=== PATIENT | male | born 1970 | race Caucasian/White ===

== ENCOUNTER 2016-09-27 16:57 | Emergency (ER) | payer OTHER ==
[2016-09-27] MEDS ORDERED: diphenhydrAMINE 25 MG CAP As Ordered ONE (18:15)
[2016-09-27] MEDS ORDERED: ASPIRIN 81 MG CHEW TABLET As Ordered ONE (18:15)
[2016-09-27 18:27] LABS: ANION GAP 8 MEQ/L (8-16); BLOOD UREA NITROGEN 15 MG/DL (7-18); CALCIUM LEVEL 9.2 MG/DL (8.5-10.1); CARBON DIOXIDE LEVEL 31 MEQ/L (21-32); CHLORIDE LEVEL 103 MEQ/L (98-107); CREATININE FOR GFR 0.95 MG/DL (0.70-1.30); GLOMERULAR FILTRATION RATE > 60.0 (>60); GLUCOSE, FASTING 98 MG/DL (70-105); POTASSIUM SERUM 3.5 MEQ/L (3.5-5.1); SODIUM LEVEL 142 MEQ/L (136-145)
[2016-09-27 18:33] LABS: MEAN CORPUSCULAR HEMOGLOBIN 32.8 pg (27.0-33.0); MEAN CORPUSCULAR HGB CONC 35.4 g/dl (32.0-36.5); MEAN CORPUSCULAR VOLUME 92.6 fl (80.0-96.0); RED CELL DISTRIBUTION WIDTH 11.9 % (11.5-14.5)
[2016-09-27] MEDS ORDERED: ISOVUE-370 76% 100ML VIAL (Q9967) As Ordered ONE (19:05)
--- NOTE | 2016-09-27 19:18 | REP ---
Clinical: Chest pain. Technique: Portable semiupright. Comparison: 08/30/2012. Findings: Chronic stable interstitial changes are appreciated. Coarsened markings may reflect reactive airway disease versus bronchitis. No focal consolidation, effusion, or pneumothorax. Mediastinum and cardiac silhouette normal. Skeletal structures intact. Impression: Chronic stable changes. Cannot exclude acute bronchitis without focal consolidation. Signed by Mal Hendricks MD 09/27/2016 07:09 P
--- NOTE | 2016-09-27 19:38 | REP ---
Clinical: Acute chest pain. Technique: Axial contrast enhanced images from the thoracic inlet to the upper abdomen using 100 ml Isovue 370 intravenous contrast material with coronal and sagittal re-formations. Findings: Satisfactory enhancement of the pulmonary vasculature is achieved and no filling defects are identified to suggest pulmonary embolus. Thoracic aorta is normal caliber without aneurysm or dissection. Heart and pericardium are normal. Bilateral lung bateman are well aerated and clear without acute pulmonary parenchymal consolidation or atelectasis. No nodule or mass lesion. No pleural effusion/reaction. No pneumothorax. No adenopathy. Impression: No evidence for pulmonary embolus. No acute pleuroparenchymal or mediastinal process. Signed by Mal Hendricks MD 09/27/2016 07:30 P
--- NOTE | 2016-09-28 01:11 | EDDOCDS ---
Nurse's Notes [facility] Name: Surjit Richardson Age: 46 yrs Sex: Male : 1970 Arrival Date: 09/27/2016 Time: 16:57 Bed OBSERVATION Private MD: Toya Pcp Diagnosis: Chest pain, unspecified Presentation: 09/27 17:01 Presenting complaint: Patient states: intermittent chest pain since May. Reports ead "I bent over to tie my shoes yesterday and pain suddenly became worse." Reports pain radiates into upper back. Denies sob/dizziness. Aspirin was not taken prior to arrival. Adult Sepsis Screening: The patient does not have new or worsening altered mentation. Patient's respiratory rate is less than 22. Systolic blood pressure is greater than 100. Patient has a qSOFA score of 0- Negative Sepsis Screen. Suicide/Homicide risk assessment- the patient denies having any suicidal and/or homicidal ideations and does not present with any other emotional, behavioral or mental health complaints. 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 Transition of care: patient was not received from another setting of care. 17:01 Acuity: KRISTEN Level 3 ead 17:01 Method Of Arrival: Walkin/Carried/Asstd ead Triage Assessment: 17:03 General: Appears in no apparent distress, comfortable, Behavior is cooperative. Pain: ead Location: chest Pain currently is 5 out of 10 on a pain scale. HIV screening NA for this visit Offered previously. Neurological: Level of Consciousness is awake, alert, obeys commands, Oriented to person, place, time. Cardiovascular: Chest pain is described as Pain is 5 out of 10 on a pain scale. radiates back episodes are intermittent began yesterday. Respiratory: Denies shortness of breath. Derm: Skin is pink, warm & dry. Historical: - Allergies: Aleve (Hives); - Home Meds: 1. none - PMHx: none; - PSHx: Appendectomy; double hernia; Carpal Tunnel Repair- Right; - Social history: Smoking status: Patient states former smoker of tobacco. No barriers to communication noted, The patient speaks fluent Latvian, Speaks appropriately for age. - Family history: Not pertinent. - : The pt / caregiver states he / she is not on anticoagulants. Home medication list is obtained from the patient. - Exposure Risk Screening:: None identified. Screenin:14 Screening information is obtained from the patient. Fall risk: No risks identified. kc3 Assistance ADL's: requires no assistance with activities of daily living. Abuse/DV Screen: The patient / caregiver reports he/she is: not in a situation that causes fear, pain or injury. Nutritional screening: No deficits noted. Advance Directives: Currently, there is no health care proxy. home support is adequate. Assessment: 17:12 General: Appears in no apparent distress, comfortable, Behavior is appropriate for age, kc3 cooperative. Pain: Location: chest. Neurological: Level of Consciousness is awake, alert, obeys commands, Oriented to person, place, time. Cardiovascular: Rhythm is sinus rhythm Chest pain is described as Pain is 4 out of 10 on a pain scale. quality is heaviness, is located in right anterior chest wall radiates back episodes are intermittent began yesterday pm. Respiratory: Respiratory effort is even, unlabored, Respiratory pattern is regular, symmetrical. GI: Denies nausea. Derm: Skin is pink, warm & dry. Musculoskeletal: Circulation, motion, and sensation intact. 18:18 General: Appears in no apparent distress, comfortable, Behavior is appropriate for age, kc3 cooperative. Neurological: No deficits noted. Cardiovascular: Rhythm is sinus rhythm Chest pain is described as Pain is 1 out of 10 on a pain scale. Respiratory: Respiratory effort is even, unlabored, Respiratory pattern is regular, symmetrical. Derm: Skin is pink, warm & dry. 18:59 General: Verbal report given by Ema Pat RN.. kas2 19:00 General: Assumed care of patient at this time.. kas2 19:05 General: Patient gone to CT scan via stretcher with tech.. kas2 19:21 General: Patient back from CT scan via stretcher with RN. Resettled in bed. Denies pain kas2 or discomfort at this time. No apparent distress noted. Call lazaro within reach. Will continue to monitor.. 20:08 General: Appears in no apparent distress, comfortable, well nourished, well groomed, kas2 Behavior is appropriate for age, cooperative. Pain: Denies pain. Neurological: Level of Consciousness is awake, alert, obeys commands, Oriented to person, place, time. Cardiovascular: Capillary refill < 3 seconds Heart tones S1 S2 present Rhythm is sinus rhythm No ectopy. Respiratory: Airway is patent Respiratory effort is even, unlabored, Respiratory pattern is regular, symmetrical, Breath sounds are clear bilaterally. GI: Abdomen is flat, non- distended Bowel sounds present X 4 quads. Abd is soft and non tender X 4 quads. Derm: Skin is intact, is healthy with good turgor, Skin is dry, Skin is pink, warm & dry. Skin temperature is warm. 20:59 General: Patient laying in bed. Denies pain or discomfort at this time. Appears kas2 comfortable. No apparent distress noted. Call lazaro within reach. Will continue to monitor.. 22:55 General: Appears in no apparent distress, comfortable, well nourished, well groomed, kas2 Behavior is appropriate for age, cooperative. Pain: Denies pain. Neurological: Level of Consciousness is awake, alert, obeys commands, Oriented to person, place, time. Cardiovascular: Capillary refill < 3 seconds Heart tones present Rhythm is sinus rhythm No ectopy. Respiratory: Airway is patent Respiratory effort is even, unlabored, Respiratory pattern is regular, symmetrical, Breath sounds are clear bilaterally. Derm: Skin is intact, is healthy with good turgor, Skin is dry, Skin is pink, warm & dry. Skin temperature is warm. 09/28 00:13 General: Patient sleeping at this time. Appears comfortable. No apparent distress kas2 noted. Call lazaro within reach. Will continue to monitor.. 01:08 General: Appears in no apparent distress, Behavior is appropriate for age, cooperative, sls1 Discharge instructions reviewed with pt including medication use, referral for cardiology, and [facility] clinic to establish care, pt verbalizes understanding of all instructions. Pain: Denies pain. Neurological: No deficits noted. Cardiovascular: Rhythm is sinus rhythm No ectopy. Chest pain is denied. Respiratory: Airway is patent Respiratory effort is even, unlabored, Respiratory pattern is regular, symmetrical. Vital Signs: 09/27 17:00 BP 157 / 74; Pulse 78; Resp 18 S; Temp 96.8(O); Pulse Ox 100% on R/A; Weight 83.91 kg gr2 (R); Height 5 ft. 7 in. (170.18 cm) (R); Pain 4/10; 17:16 BP 141 / 85 (auto/); kc3 17:17 Pulse 63 MON; Pulse Ox 99% ; kc3 17:30 BP 123 / 76 (auto/); kc3 17:31 Pulse 60 MON; Pulse Ox 99% ; kc3 18:00 BP 125 / 78 (auto/); kc3 18:01 Pulse 65 MON; Pulse Ox 98% ; kc3 18:30 BP 123 / 76 (auto/); kas2 18:30 Pulse 64 MON; Pulse Ox 98% ; kas2 19:00 BP 129 / 75 (auto/); kas2 19:00 Pulse 63 MON; Pulse Ox 97% ; kas2 19:19 BP 139 / 80 (auto/); kas2 19:21 Pulse 59 MON; Pulse Ox 98% ; kas2 19:30 BP 127 / 75 (auto/); kas2 19:30 Pulse 59 MON; Pulse Ox 98% ; kas2 19:45 BP 126 / 74 (auto/); kas2 19:45 Pulse 60 MON; Pulse Ox 98% ; kas2 20:00 BP 127 / 77 (auto/); kas2 20:00 Pulse 67 MON; Pulse Ox 98% ; kas2 20:10 Resp 18; Temp 98.0(O); kas2 20:15 BP 124 / 76 (auto/); kas2 20:15 Pulse 61 MON; Pulse Ox 98% ; kas2 20:30 BP 121 / 73 (auto/); kas2 20:30 Pulse 66 MON; Pulse Ox 96% ; kas2 20:45 BP 122 / 72 (auto/); kas2 20:45 Pulse 65 MON; Pulse Ox 98% ; kas2 21:00 BP 122 / 72 (auto/); kas2 21:00 Pulse 66 MON; Pulse Ox 97% ; kas2 21:15 BP 115 / 69 (auto/); kas2 21:15 Pulse 67 MON; Pulse Ox 97% ; kas2 21:30 BP 119 / 71 (auto/); kas2 21:30 Pulse 68 MON; Pulse Ox 98% ; kas2 21:45 BP 124 / 75 (auto/); kas2 21:45 Pulse 65 MON; Pulse Ox 98% ; kas2 22:00 BP 130 / 77 (auto/); kas2 22:00 Pulse 66 MON; Pulse Ox 97% ; kas2 22:15 BP 129 / 79 (auto/); kas2 22:15 Pulse 63 MON; Pulse Ox 99% ; kas2 22:30 BP 129 / 78 (auto/); kas2 22:30 Pulse 68 MON; Pulse Ox 98% ; kas2 23:00 BP 128 / 77 (auto/); kas2 23:00 Pulse 64 MON; Pulse Ox 98% ; kas2 23:15 BP 130 / 82 (auto/); kas2 23:15 Pulse 65 MON; Pulse Ox 98% ; kas2 23:30 BP 133 / 79 (auto/); kas2 23:30 Pulse 62 MON; Pulse Ox 98% ; kas2 23:45 BP 133 / 80 (auto/); kas2 23:45 Pulse 63 MON; Pulse Ox 98% ; kas2 01 00:09 BP 135 / 77 (auto/); kas2 00:09 Pulse 65 MON; Pulse Ox 98% ; kas2 00:15 BP 132 / 78 (auto/); sls1 00:16 Pulse 64 MON; Pulse Ox 97% ; sls1 00:30 BP 133 / 78 (auto/); sls1 00:31 Pulse 66 MON; Pulse Ox 97% ; sls1 00:45 BP 137 / 80 (auto/); sls1 00:47 Pulse 69 MON; Resp 22; Pulse Ox 97% on R/A; Pain 0/10; sls1 09/27 17:00 Body Mass Index 28.97 (83.91 kg, 170.18 cm) gr2 Vitals: 09/27 17:00 Log In Time: September 27, 2016 at 17:00. gr2 17:01 RN notified that patient meets Red Flag criteria. gr2 ED Course: 16:59 Patient visited by Niki Medrano. gr2 16:59 No Pcp is Private Physician. gr2 16:59 Patient moved to Waiting gr2 17:01 Patient visited by Niki Medrano. gr2 17:01 Patient visited by Niki Medrano. gr2 17:02 Patient moved to Pre RCE gr2 17:02 Triage Initiated ead 17:08 Ema Pat,RN is Primary Nurse. kcs 17:08 Patient moved to 3 kcs 17:13 burglar alarm installer on. Pulse ox on. ead 17:15 The patient / caregiver is instructed regarding the plan of care and ED course. kc3 17:16 EKG done. (by ED staff). Reviewed by Cody Otoole DO. cln 17:23 Inserted saline lock: 18 gauge in right antecubital area and blood collected. The kc3 patient tolerated the procedure well. 17:24 Patient visited by Ema Pat RN. kc3 17:28 Cody Otoole DO is Attending Physician. cs11 17:28 Patient visited by Cody Otoole DO. cs11 18:08 Patient visited by Ema Pat RN. kc3 18:08 Cardiac Marker Panel Sent. kc3 18:08 Pt & Aptt Sent. kc3 18:08 MED Profile Sent. kc3 18:08 CBC Sent. kc3 18:19 Patient visited by Ema Pat RN. kc3 18:56 Shayla Honeycutt RN is Primary Nurse. kas2 18:59 Patient visited by Shayla Honeycutt RN. kas2 19:23 Patient visited by Shayla Honeycutt RN. kas2 19:27 Chest, 1 View Returned. EDMS 20:00 Patient visited by Shayla Honeycutt RN. kas2 20:03 CT Chest Angio R/O PE Returned. EDMS 20:28 Primary Nurse role handed off by Ema Pat RN ar3 21:01 Patient visited by Shayla Honeycutt RN. kas2 21:11 [facility] Payment Agreement was scanned into [facility] and attached to record. zo 21:23 Patient moved to OBSERVATION cs11 22:57 Patient visited by Shayla Honeycutt RN. kas2 23:57 Attending Physician role handed off by Cody Otoole DO mm11 23:57 Joel Munoz DO is Attending Physician. mm11 09/28 00:02 CARDIAC MARKER PANEL Sent. jmv 00:11 EKG done. (by ED staff). Reviewed by Joel Munoz DO. jmv 00:12 Patient visited by Thor Lucero PCA. jmv 00:15 Patient visited by Shayla Honeycutt RN. kas2 01:02 Jeff De Los Santos MD is Referral Physician. mm11 01:02 [facility] is Referral Physician. mm11 01:08 Discontinued lock intact, bleeding controlled, pressure dressing applied, No sls1 redness/swelling at site. No procedures done that require assistance. Administered Medications: 09/27 18:18 Drug: Aspirin 324 mg [aspirin 81 mg chewable tablet (4 tabs)] Route: PO; kc3 18:18 Drug: diphenhydrAMINE 25 mg [diphenhydramine 25 mg capsule (1 caps)] Route: PO; kc3 19:06 Drug: NS 0.9% 1000 ml [sodium chloride 0.9 % intravenous solution] Route: IV; Rate: kas2 bolus; Site: right antecubital; Order Results: Lab Order: CBC; [facility] 09/27/16 17:22 Test: WHITE BLOOD COUNT; Value: 6.0; Range: 4.0-10.0; Units: K/mm3; Status: F Test: RED BLOOD COUNT; Value: 4.44; Range: 4.30-6.10; Units: M/mm3; Status: F Test: HEMOGLOBIN; Value: 14.6; Range: 14.0-18.0; Units: g/dl; Status: F Test: HEMATOCRIT; Value: 41.1; Range: 42.0-52.0; Abnormal: Below low normal; Units: %; Status: F Test: MEAN CORPUSCULAR VOLUME; Value: 92.6; Range: 80.0-96.0; Units: fl; Status: F Test: MEAN CORPUSCULAR HEMOGLOBIN; Value: 32.8; Range: 27.0-33.0; Units: pg; Status: F Test: MEAN CORPUSCULAR HGB CONC; Value: 35.4; Range: 32.0-36.5; Units: g/dl; Status: F Test: RED CELL DISTRIBUTION WIDTH; Value: 11.9; Range: 11.5-14.5; Units: %; Status: F Test: PLATELET COUNT, AUTOMATED; Value: 321; Range: 150-450; Units: k/mm3; Status: F Lab Order: MED Profile; SPEC09/27/16 17:22 Test: GLUCOSE, FASTING; Value: 98; Range: 70-105; Units: MG/DL; Status: F Test: BLOOD UREA NITROGEN; Value: 15; Range: 7-18; Units: MG/DL; Status: F Test: CREATININE FOR GFR; Value: 0.95; Range: 0.70-1.30; Units: MG/DL; Status: F Test: GLOMERULAR FILTRATION RATE; Value: > 60.0; Range: >60; Status: F Test: SODIUM LEVEL; Value: 142; Range: 136-145; Units: MEQ/L; Status: F Test: POTASSIUM SERUM; Value: 3.5; Range: 3.5-5.1; Units: MEQ/L; Status: F Test: CHLORIDE LEVEL; Value: 103; Range: 98-107; Units: MEQ/L; Status: F Test: CARBON DIOXIDE LEVEL; Value: 31; Range: 21-32; Units: MEQ/L; Status: F Test: ANION GAP; Value: 8; Range: 8-16; Units: MEQ/L; Status: F Test: CALCIUM LEVEL; Value: 9.2; Range: 8.5-10.1; Units: MG/DL; Status: F Test Note: ; Units are mL/min/1.73 m2 Chronic Kidney Disease Staging per NKF: Stage I & II GFR >=60 Normal to Mildly Decreased Stage III GFR 30-59 Moderately Decreased Stage IV GFR 15-29 Severely Decreased Stage V GFR <15 Very Little GFR Left ESRD GFR <15 on PRACTICAL NURSING FACULTY Lab Order: Pt & Aptt; SPEC'M 09/27/16 17:22 Test: PROTHROMBIN TIME; Value: 13.3; Range: 12.3-14.5; Units: SECONDS; Status: F Test: INR; Value: 1.00; Status: F Test: PARTIAL THROMBOPLASTIN TIME; Value: 29.2; Range: 26.6-37.1; Units: SECONDS; Status: F Test Note: ; THERAPUTIC HUMAN INR VALUES INDICATIONS NORMAL RANGES PROPHYLAXIS/TREATMENT OF: VENOUS THROMBOSIS 2.0-3.0 PULMONARY EMBOLISM 2.0-3.0 PREVENTION OF SYSTEMIC EMBOLISM FROM: TISSUE HEART VALVES 2.0-3.0 ACUTE MYOCARDIAL INFARCTION 2.0-3.0 VALVULAR HEART DISEASE 2.0-3.0 ATRIAL FIBRILLATION 2.0-3.0 MECHANICAL VALVES(HIGH RISK) 2.5-3.5 RECURRENT MYOCARDIAL INFARCTION 2.5-3.5 Lab Order: Cardiac Marker Panel; SPEC'M 09/27/16 17:22 Test: CPK CREATINE PHOSPHOKINASE; Value: 98; Range: 39-308; Units: U/L; Status: F Test: CK-MB VALUE MASS; Value: 1.0; Range: 0.0-3.6; Units: NG/ML; Status: F Test: MB/CK RELATIVE INDEX; Value: 1.02; Range: < OR =4; Status: F Test: TROPONIN I; Value: < 0.02; Range: < 0.10; Units: NG/ML; Status: F Test Note: ; DIAGNOSIS CRITERIA MMB ng/ml Relative Index (RI) NON-AMI < or = 5 N/A DALAL ZONE > 5 < or = 4 AMI > 5 > 4 Lab Order: CARDIAC MARKER PANEL; SPEC'M 09/28/16 00:02 Test: CPK CREATINE PHOSPHOKINASE; Value: 83; Range: 39-308; Units: U/L; Status: F Test: CK-MB VALUE MASS; Value: 1.0; Range: 0.0-3.6; Units: NG/ML; Status: F Test: MB/CK RELATIVE INDEX; Value: 1.20; Range: < OR =4; Status: F Test: TROPONIN I; Value: < 0.02; Range: < 0.10; Units: NG/ML; Status: F Test Note: ; DIAGNOSIS CRITERIA MMB ng/ml Relative Index (RI) NON-AMI < or = 5 N/A DALAL ZONE > 5 < or = 4 AMI > 5 > 4 Radiology Order: Chest, 1 View Test: Chest, 1 View REASON FOR EXAMINATION: Chest Pain; Clinical: Chest pain.; ; Technique: Portable semiupright.; ; Comparison: 08/30/2012.; ; Findings: Chronic stable interstitial changes are appreciated. Coarsened; markings may reflect reactive airway disease versus bronchitis. No focal; consolidation, effusion, or pneumothorax. Mediastinum and cardiac silhouette; normal. Skeletal structures intact.; ; Impression:; Chronic stable changes.; Cannot exclude acute bronchitis without focal consolidation.; ; ; Signed by; Mal Hendricks MD 09/27/2016 07:09 P; Radiology Order: CT Chest Angio R/O PE Test: CT Chest Angio R/O PE REASON FOR EXAMINATION: Chest Pain; Clinical: Acute chest pain.; ; Technique: Axial contrast enhanced images from the thoracic inlet to the upper; abdomen using 100 ml Isovue 370 intravenous contrast material with coronal and; sagittal re-formations.; ; Findings: Satisfactory enhancement of the pulmonary vasculature is achieved and; no filling defects are identified to suggest pulmonary embolus. Thoracic aorta; is normal caliber without aneurysm or dissection. Heart and pericardium are; normal. Bilateral lung bateman are well aerated and clear without acute pulmonary; parenchymal consolidation or atelectasis. No nodule or mass lesion. No pleural; effusion/reaction. No pneumothorax. No adenopathy.; ; Impression:; No evidence for pulmonary embolus.; No acute pleuroparenchymal or mediastinal process.; ; ; Signed by; Mal Hendricks MD 09/27/2016 07:30 P; Outcome: 09/28 01:03 Discharge ordered by Provider. mm11 01:08 Discharge Assessment: Patient awake, alert and oriented x 3. No cognitive and/or sls1 functional deficits noted. Patient verbalized understanding of disposition instructions. patient administered narcotics - no. The following High Risk Discharge criteria are identified: None. Discharged to home ambulatory. Condition: stable. Discharge instructions given to patient, Instructed on discharge instructions, follow up and referral plans. medication usage, Demonstrated understanding of instructions, medications, Pt was receptive of discharge instructions/ teaching. Prescriptions given X 1. Property :Personal belongings accompany Pt. 01:10 CT Study completed. sls1 01:10 Patient left the ED. sls1 Signatures: Dispatcher [employer] EDMS Sugey Lopez, RN RN Mily Hi Matthew, DO DO mm11 Gill Dejesus, MOLDING ENGINEER MOLDING ENGINEER ar3 Tri Dotson, RN RN sls1 Cody Otoole, DO DO cs11 Niki Medrano gr2 Kylah Rodriguez,RN Ema Sepulveda RN RN kc3 Shayla Honeycutt RN RN kas2 Andrae, Erica, MOLDING ENGINEER MOLDING ENGINEER cln Thor Lucero, MOLDING ENGINEER MOLDING ENGINEER jmv MTDD
--- NOTE | 2016-09-28 01:11 | EDDOCDS ---
Physician Documentation [facility] Name: [facility] Clarkn[place]ki Age: 46 yrs Sex: Male : 1970 Arrival Date: 09/27/2016 Time: 16:57 Bed OBSERVATION Private MD: No Pcp Disposition: 09/28/16 01:03 Discharged to Home/Self Care. Impression: Chest pain, unspecified. - Condition is Stable. - Discharge Instructions: Angina Pectoris, Nonspecific Chest Pain, Chest Wall Pain. - Prescriptions for Prednisone 20 mg Oral Tablet - take 1 tablet by ORAL route once daily for 5 days; 5 tablet. - Medication Reconciliation, Local Pharmacy Hours form. - Follow up: Jeff De Los Santos MD; When: 10 - 14 days; Reason: To establish care. [facility]; When: Call to arrange an appointment; Reason: To establish care. - Problem is an acute exacerbation. - Symptoms have improved. Historical: - Allergies: Aleve (Hives); - Home Meds: 1. none - PMHx: none; - PSHx: Appendectomy; double hernia; Carpal Tunnel Repair- Right; - Social history: Smoking status: Patient states former smoker of tobacco. No barriers to communication noted, The patient speaks fluent Kiswahili, Speaks appropriately for age. - Family history: Not pertinent. - : The pt / caregiver states he / she is not on anticoagulants. Home medication list is obtained from the patient. - Exposure Risk Screening:: None identified. Vital Signs: 09/27 17:00 BP 157 / 74; Pulse 78; Resp 18 S; Temp 96.8(O); Pulse Ox 100% on R/A; Weight 83.91 kg / gr2 184.99 lbs (R); Height 5 ft. 7 in. (170.18 cm) (R); Pain 4/10; 17:16 BP 141 / 85 (auto/); kc3 17:17 Pulse 63 MON; Pulse Ox 99% ; kc3 17:30 BP 123 / 76 (auto/); kc3 17:31 Pulse 60 MON; Pulse Ox 99% ; kc3 18:00 BP 125 / 78 (auto/); kc3 18:01 Pulse 65 MON; Pulse Ox 98% ; kc3 18:30 BP 123 / 76 (auto/); kas2 18:30 Pulse 64 MON; Pulse Ox 98% ; kas2 19:00 BP 129 / 75 (auto/); kas2 19:00 Pulse 63 MON; Pulse Ox 97% ; kas2 19:19 BP 139 / 80 (auto/); kas2 19:21 Pulse 59 MON; Pulse Ox 98% ; kas2 19:30 BP 127 / 75 (auto/); kas2 19:30 Pulse 59 MON; Pulse Ox 98% ; kas2 19:45 BP 126 / 74 (auto/); kas2 19:45 Pulse 60 MON; Pulse Ox 98% ; kas2 20:00 BP 127 / 77 (auto/); kas2 20:00 Pulse 67 MON; Pulse Ox 98% ; kas2 20:10 Resp 18; Temp 98.0(O); kas2 20:15 BP 124 / 76 (auto/); kas2 20:15 Pulse 61 MON; Pulse Ox 98% ; kas2 20:30 BP 121 / 73 (auto/); kas2 20:30 Pulse 66 MON; Pulse Ox 96% ; kas2 20:45 BP 122 / 72 (auto/); kas2 20:45 Pulse 65 MON; Pulse Ox 98% ; kas2 21:00 BP 122 / 72 (auto/); kas2 21:00 Pulse 66 MON; Pulse Ox 97% ; kas2 21:15 BP 115 / 69 (auto/); kas2 21:15 Pulse 67 MON; Pulse Ox 97% ; kas2 21:30 BP 119 / 71 (auto/); kas2 21:30 Pulse 68 MON; Pulse Ox 98% ; kas2 21:45 BP 124 / 75 (auto/); kas2 21:45 Pulse 65 MON; Pulse Ox 98% ; kas2 22:00 BP 130 / 77 (auto/); kas2 22:00 Pulse 66 MON; Pulse Ox 97% ; kas2 22:15 BP 129 / 79 (auto/); kas2 22:15 Pulse 63 MON; Pulse Ox 99% ; kas2 22:30 BP 129 / 78 (auto/); kas2 22:30 Pulse 68 MON; Pulse Ox 98% ; kas2 23:00 BP 128 / 77 (auto/); kas2 23:00 Pulse 64 MON; Pulse Ox 98% ; kas2 23:15 BP 130 / 82 (auto/); kas2 23:15 Pulse 65 MON; Pulse Ox 98% ; kas2 23:30 BP 133 / 79 (auto/); kas2 23:30 Pulse 62 MON; Pulse Ox 98% ; kas2 23:45 BP 133 / 80 (auto/); kas2 23:45 Pulse 63 MON; Pulse Ox 98% ; kas2 09/28 00:09 BP 135 / 77 (auto/); kas2 00:09 Pulse 65 MON; Pulse Ox 98% ; kas2 00:15 BP 132 / 78 (auto/); sls1 00:16 Pulse 64 MON; Pulse Ox 97% ; sls1 00:30 BP 133 / 78 (auto/); sls1 00:31 Pulse 66 MON; Pulse Ox 97% ; sls1 00:45 BP 137 / 80 (auto/); sls1 00:47 Pulse 69 MON; Resp 22; Pulse Ox 97% on R/A; Pain 0/10; [facility] 09/27 17:00 Body Mass Index 28.97 (83.91 kg, 170.18 cm) gr2 MDM: 09/27 17:06 ECG WITH READING ER PHYS+CARDIAG ordered. EDMS 17:56 Aspirin 324 mg PO once ordered. cs11 17:56 diphenhydrAMINE 25 mg PO once ordered. cs11 17:56 IV Saline Lock ordered. cs11 17:57 Chest, 1 View Ordered. EDMS 17:57 CBC Ordered. EDMS 17:57 MED Profile Ordered. EDMS 17:57 Pt & Aptt Ordered. EDMS 17:57 Cardiac Marker Panel Ordered. EDMS 18:59 CBC Reviewed. cs11 18:59 MED Profile Reviewed. cs11 18:59 Pt & Aptt Reviewed. cs11 18:59 Cardiac Marker Panel Reviewed. cs11 18:59 NS 0.9% 1000 ml IV at bolus once ordered. cs11 19:01 CT Chest Angio R/O PE Ordered. EDMS 20:49 Financial registration complete. zo 21:11 [facility] Payment Agreement was scanned into [employer] and attached to record. zo 22:33 Misc Chief Crna Order ordered. cs11 22:46 [facility] Chief Crna Order complete. tmm1 22:46 ECG WITH READING ER PHYS ordered. EDMS 22:47 CARDIAC MARKER PANEL Ordered. EDMS 22:57 Chest, 1 View Reviewed. cs11 22:57 CT Chest Angio R/O PE Reviewed. cs11 09/28 00:45 CARDIAC MARKER PANEL Reviewed. mm11 Administered Medications: 09/27 18:18 Drug: Aspirin 324 mg [aspirin 81 mg chewable tablet (4 tabs)] Route: PO; kc3 18:18 Drug: diphenhydrAMINE 25 mg [diphenhydramine 25 mg capsule (1 caps)] Route: PO; kc3 19:06 Drug: NS 0.9% 1000 ml [sodium chloride 0.9 % intravenous solution] Route: IV; Rate: kas2 bolus; Site: right antecubital; Signatures: Dispatcher [employer] EDMily Etienne Matthew, DO DO mm11 Tri Dotson RN RN sls1 Cody Otoole DO DO cs11 McLear, Karla, ARTILLERY MAINTENANCE SUPERVISOR ARTILLERY MAINTENANCE SUPERVISOR tmm1 Kylah Rodriguez RN RN Ema Hernandez RN kc3 Shayla Honeycutt RN kas2 The chart was reviewed and I authenticate all verbal orders and agree with the evaluation and treatment provided.Attachments: 21:11 [facility] Payment Agreement zo MTDD
--- NOTE | 2016-09-28 19:51 | ECGEPIP ---
Stationary ECG Study [facility] - ED Test Date: 2016-09-27 Pat Name: [facility] Department: Room: - Gender: M Glaze Handler: elza : 1970 Requested By: LANE Juárez Order Number: [id number] Reading MD: Esperanza Gonzalez Measurements Intervals [place] Rate: 71 P: 47 NH: 189 QRS: 8 QRSD: 82 T: 31 QT: 377 QTc: 411 Interpretive Statements SINUS RHYTHM NSTTW ABNORMALITY NO PRIOR FOR COMPARISON Electronically Signed On 09-28-2016 19:51:29 EST by Esperanza Gonzalez
--- NOTE | 2016-09-28 19:53 | ECGEPIP ---
Stationary ECG Study [facility] - ED Test Date: 2016-09-28 Pat Name: CHUCK FOSTER Department: Room: - Gender: M Deportation Examiner: alexandre : 1970 Requested By: RAHEEM BOLANOS Order Number: [id number] Reading MD: Esperanza Gonzalez Measurements Intervals [place] Rate: 58 P: 39 DE: 189 QRS: 3 QRSD: 82 T: 16 QT: 380 QTc: 375 Interpretive Statements SINUS BRADYCARDIA NSTTW ABNORMALITY DECREASED RATE 09/27/16 Electronically Signed On 09-28-2016 19:53:03 EST by Esperanza Gonzalez
--- NOTE | 2016-09-30 02:11 | EDDOCDS ---
Physician Documentation [facility] Name: [facility] [place] Age: 46 yrs Sex: Male : 1970 Arrival Date: 09/27/2016 Time: 16:57 Bed OBSERVATION Private MD: No Pcp Disposition: 09/28/16 01:03 Discharged to Home/Self Care. Impression: Chest pain, unspecified. - Condition is Stable. - Discharge Instructions: Angina Pectoris, Nonspecific Chest Pain, Chest Wall Pain. - Prescriptions for Prednisone 20 mg Oral Tablet - take 1 tablet by ORAL route once daily for 5 days; 5 tablet. - Medication Reconciliation, Local Pharmacy Hours form. - Follow up: Jeff De Los Santos MD; When: 10 - 14 days; Reason: To establish care. [facility]; When: Call to arrange an appointment; Reason: To establish care. - Problem is an acute exacerbation. - Symptoms have improved. Historical: - Allergies: Aleve (Hives); - Home Meds: 1. none - PMHx: none; - PSHx: Appendectomy; double hernia; Carpal Tunnel Repair- Right; - Social history: Smoking status: Patient states former smoker of tobacco. No barriers to communication noted, The patient speaks fluent Urdu, Speaks appropriately for age. - Family history: Not pertinent. - : The pt / caregiver states he / she is not on anticoagulants. Home medication list is obtained from the patient. - Exposure Risk Screening:: None identified. Vital Signs: 09/27 17:00 BP 157 / 74; Pulse 78; Resp 18 S; Temp 96.8(O); Pulse Ox 100% on R/A; Weight 83.91 kg / gr2 184.99 lbs (R); Height 5 ft. 7 in. (170.18 cm) (R); Pain 4/10; 17:16 BP 141 / 85 (auto/); kc3 17:17 Pulse 63 MON; Pulse Ox 99% ; kc3 17:30 BP 123 / 76 (auto/); kc3 17:31 Pulse 60 MON; Pulse Ox 99% ; kc3 18:00 BP 125 / 78 (auto/); kc3 18:01 Pulse 65 MON; Pulse Ox 98% ; kc3 18:30 BP 123 / 76 (auto/); kas2 18:30 Pulse 64 MON; Pulse Ox 98% ; kas2 19:00 BP 129 / 75 (auto/); kas2 19:00 Pulse 63 MON; Pulse Ox 97% ; kas2 19:19 BP 139 / 80 (auto/); kas2 19:21 Pulse 59 MON; Pulse Ox 98% ; kas2 19:30 BP 127 / 75 (auto/); kas2 19:30 Pulse 59 MON; Pulse Ox 98% ; kas2 19:45 BP 126 / 74 (auto/); kas2 19:45 Pulse 60 MON; Pulse Ox 98% ; kas2 20:00 BP 127 / 77 (auto/); kas2 20:00 Pulse 67 MON; Pulse Ox 98% ; kas2 20:10 Resp 18; Temp 98.0(O); kas2 20:15 BP 124 / 76 (auto/); kas2 20:15 Pulse 61 MON; Pulse Ox 98% ; kas2 20:30 BP 121 / 73 (auto/); kas2 20:30 Pulse 66 MON; Pulse Ox 96% ; kas2 20:45 BP 122 / 72 (auto/); kas2 20:45 Pulse 65 MON; Pulse Ox 98% ; kas2 21:00 BP 122 / 72 (auto/); kas2 21:00 Pulse 66 MON; Pulse Ox 97% ; kas2 21:15 BP 115 / 69 (auto/); kas2 21:15 Pulse 67 MON; Pulse Ox 97% ; kas2 21:30 BP 119 / 71 (auto/); kas2 21:30 Pulse 68 MON; Pulse Ox 98% ; kas2 21:45 BP 124 / 75 (auto/); kas2 21:45 Pulse 65 MON; Pulse Ox 98% ; kas2 22:00 BP 130 / 77 (auto/); kas2 22:00 Pulse 66 MON; Pulse Ox 97% ; kas2 22:15 BP 129 / 79 (auto/); kas2 22:15 Pulse 63 MON; Pulse Ox 99% ; kas2 22:30 BP 129 / 78 (auto/); kas2 22:30 Pulse 68 MON; Pulse Ox 98% ; kas2 23:00 BP 128 / 77 (auto/); kas2 23:00 Pulse 64 MON; Pulse Ox 98% ; kas2 23:15 BP 130 / 82 (auto/); kas2 23:15 Pulse 65 MON; Pulse Ox 98% ; kas2 23:30 BP 133 / 79 (auto/); kas2 23:30 Pulse 62 MON; Pulse Ox 98% ; kas2 23:45 BP 133 / 80 (auto/); kas2 23:45 Pulse 63 MON; Pulse Ox 98% ; kas2 09/28 00:09 BP 135 / 77 (auto/); kas2 00:09 Pulse 65 MON; Pulse Ox 98% ; kas2 00:15 BP 132 / 78 (auto/); sls1 00:16 Pulse 64 MON; Pulse Ox 97% ; sls1 00:30 BP 133 / 78 (auto/); sls1 00:31 Pulse 66 MON; Pulse Ox 97% ; sls1 00:45 BP 137 / 80 (auto/); sls1 00:47 Pulse 69 MON; Resp 22; Pulse Ox 97% on R/A; Pain 0/10; [facility] 09/27 17:00 Body Mass Index 28.97 (83.91 kg, 170.18 cm) gr2 MDM: 09/27 17:06 ECG WITH READING ER PHYS+CARDIAG ordered. EDMS 17:56 Aspirin 324 mg PO once ordered. cs11 17:56 diphenhydrAMINE 25 mg PO once ordered. cs11 17:56 IV Saline Lock ordered. cs11 17:57 Chest, 1 View Ordered. EDMS 17:57 CBC Ordered. EDMS 17:57 MED Profile Ordered. EDMS 17:57 Pt & Aptt Ordered. EDMS 17:57 Cardiac Marker Panel Ordered. EDMS 18:59 CBC Reviewed. cs11 18:59 MED Profile Reviewed. cs11 18:59 Pt & Aptt Reviewed. cs11 18:59 Cardiac Marker Panel Reviewed. cs11 18:59 NS 0.9% 1000 ml IV at bolus once ordered. cs11 19:01 CT Chest Angio R/O PE Ordered. EDMS 20:49 Financial registration complete. zo 21:11 [facility] Payment Agreement was scanned into [employer] and attached to record. zo 22:33 Misc Sanding Machine Operator Order ordered. cs11 22:46 [facility] Sanding Machine Operator Order complete. tmm1 22:46 ECG WITH READING ER PHYS ordered. EDMS 22:47 CARDIAC MARKER PANEL Ordered. EDMS 22:57 Chest, 1 View Reviewed. cs11 22:57 CT Chest Angio R/O PE Reviewed. cs11 09/28 00:45 CARDIAC MARKER PANEL Reviewed. mm11 03:28 T-Sheet-- Draft Copy was scanned into [employer] and attached to record. hs2 11:58 ECG/EKG was scanned into [employer] and attached to record. gb Administered Medications: 09/27 18:18 Drug: Aspirin 324 mg [aspirin 81 mg chewable tablet (4 tabs)] Route: PO; kc3 18:18 Drug: diphenhydrAMINE 25 mg [diphenhydramine 25 mg capsule (1 caps)] Route: PO; kc3 19:06 Drug: NS 0.9% 1000 ml [sodium chloride 0.9 % intravenous solution] Route: IV; Rate: kas2 bolus; Site: right antecubital; Signatures: Dispatcher [employer] EDMS Slime Schumacher, Reg Reg gb Mily Galloway Matthew, DO DO mm11 Tri Dotson RN RN sls1 Cody Otoole, DO DO cs11 McLear, Karla, BAR ROLLER BAR ROLLER tmm1 Kylah RodriguezRN RN eaAmrita Castillo, Reg Reg hs2 Ema Pat RN kc3 Shayla Honeycutt RN kas2 The chart was reviewed and I authenticate all verbal orders and agree with the evaluation and treatment provided.Attachments: 21:11 [facility] Payment Agreement zo 09/28 03:28 T-Sheet-- Draft Copy hs2 11:58 ECG/EKG gb Chart Complete MTDD
--- NOTE | 2016-09-30 02:11 | EDDOCDS ---
Nurse's Notes [facility] Name: Surjit Richardson Age: 46 yrs Sex: Male : 1970 Arrival Date: 09/27/2016 Time: 16:57 Bed OBSERVATION Private MD: Toya Pcp Diagnosis: Chest pain, unspecified Presentation: 09/27 17:01 Presenting complaint: Patient states: intermittent chest pain since May. Reports ead "I bent over to tie my shoes yesterday and pain suddenly became worse." Reports pain radiates into upper back. Denies sob/dizziness. Aspirin was not taken prior to arrival. Adult Sepsis Screening: The patient does not have new or worsening altered mentation. Patient's respiratory rate is less than 22. Systolic blood pressure is greater than 100. Patient has a qSOFA score of 0- Negative Sepsis Screen. Suicide/Homicide risk assessment- the patient denies having any suicidal and/or homicidal ideations and does not present with any other emotional, behavioral or mental health complaints. Status: Patient is not a room service attendant or dependent. Transition of care: patient was not received from another setting of care. 17:01 Acuity: KRISTEN Level 3 ead 17:01 Method Of Arrival: Walkin/Carried/Asstd ead Triage Assessment: 17:03 General: Appears in no apparent distress, comfortable, Behavior is cooperative. Pain: ead Location: chest Pain currently is 5 out of 10 on a pain scale. HIV screening NA for this visit Offered previously. Neurological: Level of Consciousness is awake, alert, obeys commands, Oriented to person, place, time. Cardiovascular: Chest pain is described as Pain is 5 out of 10 on a pain scale. radiates back episodes are intermittent began yesterday. Respiratory: Denies shortness of breath. Derm: Skin is pink, warm & dry. Historical: - Allergies: Aleve (Hives); - Home Meds: 1. none - PMHx: none; - PSHx: Appendectomy; double hernia; Carpal Tunnel Repair- Right; - Social history: Smoking status: Patient states former smoker of tobacco. No barriers to communication noted, The patient speaks fluent Amharic, Speaks appropriately for age. - Family history: Not pertinent. - : The pt / caregiver states he / she is not on anticoagulants. Home medication list is obtained from the patient. - Exposure Risk Screening:: None identified. Screenin:14 Screening information is obtained from the patient. Fall risk: No risks identified. kc3 Assistance ADL's: requires no assistance with activities of daily living. Abuse/DV Screen: The patient / caregiver reports he/she is: not in a situation that causes fear, pain or injury. Nutritional screening: No deficits noted. Advance Directives: Currently, there is no health care proxy. home support is adequate. Assessment: 17:12 General: Appears in no apparent distress, comfortable, Behavior is appropriate for age, kc3 cooperative. Pain: Location: chest. Neurological: Level of Consciousness is awake, alert, obeys commands, Oriented to person, place, time. Cardiovascular: Rhythm is sinus rhythm Chest pain is described as Pain is 4 out of 10 on a pain scale. quality is heaviness, is located in right anterior chest wall radiates back episodes are intermittent began yesterday pm. Respiratory: Respiratory effort is even, unlabored, Respiratory pattern is regular, symmetrical. GI: Denies nausea. Derm: Skin is pink, warm & dry. Musculoskeletal: Circulation, motion, and sensation intact. 18:18 General: Appears in no apparent distress, comfortable, Behavior is appropriate for age, kc3 cooperative. Neurological: No deficits noted. Cardiovascular: Rhythm is sinus rhythm Chest pain is described as Pain is 1 out of 10 on a pain scale. Respiratory: Respiratory effort is even, unlabored, Respiratory pattern is regular, symmetrical. Derm: Skin is pink, warm & dry. 18:59 General: Verbal report given by Ema Pat RN.. kas2 19:00 General: Assumed care of patient at this time.. kas2 19:05 General: Patient gone to CT scan via stretcher with tech.. kas2 19:21 General: Patient back from CT scan via stretcher with RN. Resettled in bed. Denies pain kas2 or discomfort at this time. No apparent distress noted. Call lazaro within reach. Will continue to monitor.. 20:08 General: Appears in no apparent distress, comfortable, well nourished, well groomed, kas2 Behavior is appropriate for age, cooperative. Pain: Denies pain. Neurological: Level of Consciousness is awake, alert, obeys commands, Oriented to person, place, time. Cardiovascular: Capillary refill < 3 seconds Heart tones S1 S2 present Rhythm is sinus rhythm No ectopy. Respiratory: Airway is patent Respiratory effort is even, unlabored, Respiratory pattern is regular, symmetrical, Breath sounds are clear bilaterally. GI: Abdomen is flat, non- distended Bowel sounds present X 4 quads. Abd is soft and non tender X 4 quads. Derm: Skin is intact, is healthy with good turgor, Skin is dry, Skin is pink, warm & dry. Skin temperature is warm. 20:59 General: Patient laying in bed. Denies pain or discomfort at this time. Appears kas2 comfortable. No apparent distress noted. Call lazaro within reach. Will continue to monitor.. 22:55 General: Appears in no apparent distress, comfortable, well nourished, well groomed, kas2 Behavior is appropriate for age, cooperative. Pain: Denies pain. Neurological: Level of Consciousness is awake, alert, obeys commands, Oriented to person, place, time. Cardiovascular: Capillary refill < 3 seconds Heart tones present Rhythm is sinus rhythm No ectopy. Respiratory: Airway is patent Respiratory effort is even, unlabored, Respiratory pattern is regular, symmetrical, Breath sounds are clear bilaterally. Derm: Skin is intact, is healthy with good turgor, Skin is dry, Skin is pink, warm & dry. Skin temperature is warm. 09/28 00:13 General: Patient sleeping at this time. Appears comfortable. No apparent distress kas2 noted. Call lazaro within reach. Will continue to monitor.. 01:08 General: Appears in no apparent distress, Behavior is appropriate for age, cooperative, sls1 Discharge instructions reviewed with pt including medication use, referral for cardiology, and [facility] clinic to establish care, pt verbalizes understanding of all instructions. Pain: Denies pain. Neurological: No deficits noted. Cardiovascular: Rhythm is sinus rhythm No ectopy. Chest pain is denied. Respiratory: Airway is patent Respiratory effort is even, unlabored, Respiratory pattern is regular, symmetrical. Vital Signs: 09/27 17:00 BP 157 / 74; Pulse 78; Resp 18 S; Temp 96.8(O); Pulse Ox 100% on R/A; Weight 83.91 kg gr2 (R); Height 5 ft. 7 in. (170.18 cm) (R); Pain 4/10; 17:16 BP 141 / 85 (auto/); kc3 17:17 Pulse 63 MON; Pulse Ox 99% ; kc3 17:30 BP 123 / 76 (auto/); kc3 17:31 Pulse 60 MON; Pulse Ox 99% ; kc3 18:00 BP 125 / 78 (auto/); kc3 18:01 Pulse 65 MON; Pulse Ox 98% ; kc3 18:30 BP 123 / 76 (auto/); kas2 18:30 Pulse 64 MON; Pulse Ox 98% ; kas2 19:00 BP 129 / 75 (auto/); kas2 19:00 Pulse 63 MON; Pulse Ox 97% ; kas2 19:19 BP 139 / 80 (auto/); kas2 19:21 Pulse 59 MON; Pulse Ox 98% ; kas2 19:30 BP 127 / 75 (auto/); kas2 19:30 Pulse 59 MON; Pulse Ox 98% ; kas2 19:45 BP 126 / 74 (auto/); kas2 19:45 Pulse 60 MON; Pulse Ox 98% ; kas2 20:00 BP 127 / 77 (auto/); kas2 20:00 Pulse 67 MON; Pulse Ox 98% ; kas2 20:10 Resp 18; Temp 98.0(O); kas2 20:15 BP 124 / 76 (auto/); kas2 20:15 Pulse 61 MON; Pulse Ox 98% ; kas2 20:30 BP 121 / 73 (auto/); kas2 20:30 Pulse 66 MON; Pulse Ox 96% ; kas2 20:45 BP 122 / 72 (auto/); kas2 20:45 Pulse 65 MON; Pulse Ox 98% ; kas2 21:00 BP 122 / 72 (auto/); kas2 21:00 Pulse 66 MON; Pulse Ox 97% ; kas2 21:15 BP 115 / 69 (auto/); kas2 21:15 Pulse 67 MON; Pulse Ox 97% ; kas2 21:30 BP 119 / 71 (auto/); kas2 21:30 Pulse 68 MON; Pulse Ox 98% ; kas2 21:45 BP 124 / 75 (auto/); kas2 21:45 Pulse 65 MON; Pulse Ox 98% ; kas2 22:00 BP 130 / 77 (auto/); kas2 22:00 Pulse 66 MON; Pulse Ox 97% ; kas2 22:15 BP 129 / 79 (auto/); kas2 22:15 Pulse 63 MON; Pulse Ox 99% ; kas2 22:30 BP 129 / 78 (auto/); kas2 22:30 Pulse 68 MON; Pulse Ox 98% ; kas2 23:00 BP 128 / 77 (auto/); kas2 23:00 Pulse 64 MON; Pulse Ox 98% ; kas2 23:15 BP 130 / 82 (auto/); kas2 23:15 Pulse 65 MON; Pulse Ox 98% ; kas2 23:30 BP 133 / 79 (auto/); kas2 23:30 Pulse 62 MON; Pulse Ox 98% ; kas2 23:45 BP 133 / 80 (auto/); kas2 23:45 Pulse 63 MON; Pulse Ox 98% ; kas2 01 00:09 BP 135 / 77 (auto/); kas2 00:09 Pulse 65 MON; Pulse Ox 98% ; kas2 00:15 BP 132 / 78 (auto/); sls1 00:16 Pulse 64 MON; Pulse Ox 97% ; sls1 00:30 BP 133 / 78 (auto/); sls1 00:31 Pulse 66 MON; Pulse Ox 97% ; sls1 00:45 BP 137 / 80 (auto/); sls1 00:47 Pulse 69 MON; Resp 22; Pulse Ox 97% on R/A; Pain 0/10; sls1 09/27 17:00 Body Mass Index 28.97 (83.91 kg, 170.18 cm) gr2 Vitals: 09/27 17:00 Log In Time: September 27, 2016 at 17:00. gr2 17:01 RN notified that patient meets Red Flag criteria. gr2 ED Course: 16:59 Patient visited by Niki Medrano. gr2 16:59 No Pcp is Private Physician. gr2 16:59 Patient moved to Waiting gr2 17:01 Patient visited by Niki Medrano. gr2 17:01 Patient visited by Niki Medrano. gr2 17:02 Patient moved to Pre RCE gr2 17:02 Triage Initiated ead 17:08 Ema Pat,RN is Primary Nurse. kcs 17:08 Patient moved to 3 kcs 17:13 lead front end developer on. Pulse ox on. ead 17:15 The patient / caregiver is instructed regarding the plan of care and ED course. kc3 17:16 EKG done. (by ED staff). Reviewed by Raheem Bolanos DO. cln 17:23 Inserted saline lock: 18 gauge in right antecubital area and blood collected. The kc3 patient tolerated the procedure well. 17:24 Patient visited by Ema Pat RN. kc3 17:28 Raheem Bolanos DO is Attending Physician. cs11 17:28 Patient visited by Raheem Bolanos DO. cs11 18:08 Patient visited by Ema Pat RN. kc3 18:08 Cardiac Marker Panel Sent. kc3 18:08 Pt & Aptt Sent. kc3 18:08 MED Profile Sent. kc3 18:08 CBC Sent. kc3 18:19 Patient visited by Ema Pat RN. kc3 18:56 Shayla Honeycutt RN is Primary Nurse. kas2 18:59 Patient visited by Shayla Honeycutt RN. kas2 19:23 Patient visited by Shayla Honeycutt RN. kas2 19:27 Chest, 1 View Returned. EDMS 20:00 Patient visited by Shayla Honeycutt RN. kas2 20:03 CT Chest Angio R/O PE Returned. EDMS 20:28 Primary Nurse role handed off by Ema Pat RN ar3 21:01 Patient visited by Shayla Honeycutt RN. kas2 21:11 [facility] Payment Agreement was scanned into NSC and attached to record. zo 21:23 Patient moved to OBSERVATION cs11 22:57 Patient visited by Shayla Honeycutt RN. kas2 23:57 Attending Physician role handed off by Raheem Bolanos DO mm11 23:57 Joel Munoz DO is Attending Physician. mm11 09/28 00:02 CARDIAC MARKER PANEL Sent. jmv 00:11 EKG done. (by ED staff). Reviewed by Joel Munoz DO. jmv 00:12 Patient visited by Thor Lucero PCA. jmv 00:15 Patient visited by Shayla Honeycutt RN. kas2 01:02 Jeff De Los Santos MD is Referral Physician. mm11 01:02 [facility] is Referral Physician. mm11 01:08 Discontinued lock intact, bleeding controlled, pressure dressing applied, No sls1 redness/swelling at site. No procedures done that require assistance. 03:28 T-Sheet-- Draft Copy was scanned into NSC and attached to record. hs2 11:58 ECG/EKG was scanned into NSC and attached to record. gb 20:25 EKG-ADULT Returned. EDMS 20:25 ECG WITH READING ER PHYS Returned. EDMS Administered Medications: 09/27 18:18 Drug: Aspirin 324 mg [aspirin 81 mg chewable tablet (4 tabs)] Route: PO; kc3 18:18 Drug: diphenhydrAMINE 25 mg [diphenhydramine 25 mg capsule (1 caps)] Route: PO; kc3 19:06 Drug: NS 0.9% 1000 ml [sodium chloride 0.9 % intravenous solution] Route: IV; Rate: kas2 bolus; Site: right antecubital; Order Results: Lab Order: CBC; SPEC'M 09/27/16 17:22 Test: WHITE BLOOD COUNT; Value: 6.0; Range: 4.0-10.0; Units: K/mm3; Status: F Test: RED BLOOD COUNT; Value: 4.44; Range: 4.30-6.10; Units: M/mm3; Status: F Test: HEMOGLOBIN; Value: 14.6; Range: 14.0-18.0; Units: g/dl; Status: F Test: HEMATOCRIT; Value: 41.1; Range: 42.0-52.0; Abnormal: Below low normal; Units: %; Status: F Test: MEAN CORPUSCULAR VOLUME; Value: 92.6; Range: 80.0-96.0; Units: fl; Status: F Test: MEAN CORPUSCULAR HEMOGLOBIN; Value: 32.8; Range: 27.0-33.0; Units: pg; Status: F Test: MEAN CORPUSCULAR HGB CONC; Value: 35.4; Range: 32.0-36.5; Units: g/dl; Status: F Test: RED CELL DISTRIBUTION WIDTH; Value: 11.9; Range: 11.5-14.5; Units: %; Status: F Test: PLATELET COUNT, AUTOMATED; Value: 321; Range: 150-450; Units: k/mm3; Status: F Lab Order: MED Profile; SPEC'M 09/27/16 17:22 Test: GLUCOSE, FASTING; Value: 98; Range: 70-105; Units: MG/DL; Status: F Test: BLOOD UREA NITROGEN; Value: 15; Range: 7-18; Units: MG/DL; Status: F Test: CREATININE FOR GFR; Value: 0.95; Range: 0.70-1.30; Units: MG/DL; Status: F Test: GLOMERULAR FILTRATION RATE; Value: > 60.0; Range: >60; Status: F Test: SODIUM LEVEL; Value: 142; Range: 136-145; Units: MEQ/L; Status: F Test: POTASSIUM SERUM; Value: 3.5; Range: 3.5-5.1; Units: MEQ/L; Status: F Test: CHLORIDE LEVEL; Value: 103; Range: 98-107; Units: MEQ/L; Status: F Test: CARBON DIOXIDE LEVEL; Value: 31; Range: 21-32; Units: MEQ/L; Status: F Test: ANION GAP; Value: 8; Range: 8-16; Units: MEQ/L; Status: F Test: CALCIUM LEVEL; Value: 9.2; Range: 8.5-10.1; Units: MG/DL; Status: F Test Note: ; Units are mL/min/1.73 m2 Chronic Kidney Disease Staging per NKF: Stage I & II GFR >=60 Normal to Mildly Decreased Stage III GFR 30-59 Moderately Decreased Stage IV GFR 15-29 Severely Decreased Stage V GFR <15 Very Little GFR Left ESRD GFR <15 on CERTIFIED MASSAGE THERAPIST Lab Order: Pt & Aptt; SPEC'M 09/27/16 17:22 Test: PROTHROMBIN TIME; Value: 13.3; Range: 12.3-14.5; Units: SECONDS; Status: F Test: INR; Value: 1.00; Status: F Test: PARTIAL THROMBOPLASTIN TIME; Value: 29.2; Range: 26.6-37.1; Units: SECONDS; Status: F Test Note: ; THERAPUTIC HUMAN INR VALUES INDICATIONS NORMAL RANGES PROPHYLAXIS/TREATMENT OF: VENOUS THROMBOSIS 2.0-3.0 PULMONARY EMBOLISM 2.0-3.0 PREVENTION OF SYSTEMIC EMBOLISM FROM: TISSUE HEART VALVES 2.0-3.0 ACUTE MYOCARDIAL INFARCTION 2.0-3.0 VALVULAR HEART DISEASE 2.0-3.0 ATRIAL FIBRILLATION 2.0-3.0 MECHANICAL VALVES(HIGH RISK) 2.5-3.5 RECURRENT MYOCARDIAL INFARCTION 2.5-3.5 Lab Order: Cardiac Marker Panel; SPEC'M 09/27/16 17:22 Test: CPK CREATINE PHOSPHOKINASE; Value: 98; Range: 39-308; Units: U/L; Status: F Test: CK-MB VALUE MASS; Value: 1.0; Range: 0.0-3.6; Units: NG/ML; Status: F Test: MB/CK RELATIVE INDEX; Value: 1.02; Range: < OR =4; Status: F Test: TROPONIN I; Value: < 0.02; Range: < 0.10; Units: NG/ML; Status: F Test Note: ; DIAGNOSIS CRITERIA MMB ng/ml Relative Index (RI) NON-AMI < or = 5 N/A DALAL ZONE > 5 < or = 4 AMI > 5 > 4 Lab Order: [facility]ARDIAC [facility] PANEL; [facility]02 Test: CPK CREATINE PHOSPHOKINASE; Value: 83; Range: 39-308; Units: U/L; Status: F Test: CK-MB VALUE MASS; Value: 1.0; Range: 0.0-3.6; Units: NG/ML; Status: F Test: MB/CK RELATIVE INDEX; Value: 1.20; Range: < OR =4; Status: F Test: TROPONIN I; Value: < 0.02; Range: < 0.10; Units: NG/ML; Status: F Test Note: ; DIAGNOSIS CRITERIA MMB ng/ml Relative Index (RI) NON-AMI < or = 5 N/A DALAL ZONE > 5 < or = 4 AMI > 5 > 4 Radiology Order: EKG-ADULT Test: EKG-ADULT REASON FOR EXAMINATION: Chest Pain; Stationary ECG Study; [facility] - ED; ; Test Date: 2016-09-27; Pat Name: [facility] Department:; Room: -; Gender: M Hyperion Analyst: elza; : 1970 Requested By: LANE Juárez; Order Number: [id number] Reading MD: Esperanza Gonzalez; Measurements; Intervals [place]; Rate: 71 P: 47; IN: 189 QRS: 8; QRSD: 82 T: 31; QT: 377; QTc: 411; Interpretive Statements; SINUS RHYTHM; NSTTW ABNORMALITY; NO PRIOR FOR COMPARISON; Electronically Signed On 09-28-2016 19:51:29 EST by Esperanza Staples-Dwyer; Radiology Order: Chest, 1 View Test: Chest, 1 View REASON FOR EXAMINATION: Chest Pain; Clinical: Chest pain.; ; Technique: Portable semiupright.; ; Comparison: 08/30/2012.; ; Findings: Chronic stable interstitial changes are appreciated. Coarsened; markings may reflect reactive airway disease versus bronchitis. No focal; consolidation, effusion, or pneumothorax. Mediastinum and cardiac silhouette; normal. Skeletal structures intact.; ; Impression:; Chronic stable changes.; Cannot exclude acute bronchitis without focal consolidation.; ; ; Signed by; Mal Hendricks MD 09/27/2016 07:09 P; Radiology Order: CT Chest Angio R/O PE Test: CT Chest Angio R/O PE REASON FOR EXAMINATION: Chest Pain; Clinical: Acute chest pain.; ; Technique: Axial contrast enhanced images from the thoracic inlet to the upper; abdomen using 100 ml Isovue 370 intravenous contrast material with coronal and; sagittal re-formations.; ; Findings: Satisfactory enhancement of the pulmonary vasculature is achieved and; no filling defects are identified to suggest pulmonary embolus. Thoracic aorta; is normal caliber without aneurysm or dissection. Heart and pericardium are; normal. Bilateral lung bateman are well aerated and clear without acute pulmonary; parenchymal consolidation or atelectasis. No nodule or mass lesion. No pleural; effusion/reaction. No pneumothorax. No adenopathy.; ; Impression:; No evidence for pulmonary embolus.; No acute pleuroparenchymal or mediastinal process.; ; ; Signed by; Mal Hendricks MD 09/27/2016 07:30 P; Radiology Order: ECG WITH READING ER PHYS Test: ECG WITH READING ER PHYS REASON FOR EXAMINATION: CHEST PAIN; Stationary ECG Study; [facility] - ED; ; Test Date: 2016-09-28; Pat Name: [facility] Department:; Room: -; Gender: M Hyperion Analyst: alexandre; : 1970 Requested By: RAHEEM BOLANOS; Order Number: [id number] Reading MD: Esperanza Gonzalez; Measurements; Intervals [place]; Rate: 58 P: 39; IN: 189 QRS: 3; QRSD: 82 T: 16; QT: 380; QTc: 375; Interpretive Statements; SINUS BRADYCARDIA; NSTTW ABNORMALITY; DECREASED RATE 09/27/16; Electronically Signed On 09-28-2016 19:53:03 EST by Esperanza Gonzalez; Outcome: 09/28 01:03 Discharge ordered by Provider. mm11 01:08 Discharge Assessment: Patient awake, alert and oriented x 3. No cognitive and/or sls1 functional deficits noted. Patient verbalized understanding of disposition instructions. patient administered narcotics - no. The following High Risk Discharge criteria are identified: None. Discharged to home ambulatory. Condition: stable. Discharge instructions given to patient, Instructed on discharge instructions, follow up and referral plans. medication usage, Demonstrated understanding of instructions, medications, Pt was receptive of discharge instructions/ teaching. Prescriptions given X 1. Property :Personal belongings accompany Pt. 01:10 CT Study completed. sls1 01:10 Patient left the ED. sls1 Signatures: Dispatcher [employer] EDMS Sugey Lopez, RN RN kcs Slime Schumacher, Reg Reg gb Nilesh, Joel Bueno, DO DO mm11 Gill Dejesus, NEWCOMER HOSTESS NEWCOMER HOSTESS ar3 Tri Dotson, RN RN sls1 Raheem Bolanos, DO DO cs11 Niki Medrano gr2 Kylah Rodriguez,RN RN Ema Hernandez,RN RN kc3 Amrita Roberson, Reg Reg hs2 Shayla Honeycutt,RN RN aaron2 Eirca Abebe, NEWCOMER HOSTESS NEWCOMER HOSTESS cln Thor Lucero, NEWCOMER HOSTESS NEWCOMER HOSTESS jmv Chart Complete MTDD
--- NOTE | 2016-09-30 02:11 | EDDOCDS ---
Physician Documentation [facility] Name: [facility] Age: 46 yrs Sex: Male : 1970 Arrival Date: 09/27/2016 Time: 16:57 Bed OBSERVATION Private MD: No Pcp Disposition: 09/28/16 01:03 Discharged to Home/Self Care. Impression: Chest pain, unspecified. - Condition is Stable. - Discharge Instructions: Angina Pectoris, Nonspecific Chest Pain, Chest Wall Pain. - Prescriptions for Prednisone 20 mg Oral Tablet - take 1 tablet by ORAL route once daily for 5 days; 5 tablet. - Medication Reconciliation, Local Pharmacy Hours form. - Follow up: Jeff De Los Santos MD; When: 10 - 14 days; Reason: To establish care. [facility]; When: Call to arrange an appointment; Reason: To establish care. - Problem is an acute exacerbation. - Symptoms have improved. Historical: - Allergies: Aleve (Hives); - Home Meds: 1. none - PMHx: none; - PSHx: Appendectomy; double hernia; Carpal Tunnel Repair- Right; - Social history: Smoking status: Patient states former smoker of tobacco. No barriers to communication noted, The patient speaks fluent Tajik, Speaks appropriately for age. - Family history: Not pertinent. - : The pt / caregiver states he / she is not on anticoagulants. Home medication list is obtained from the patient. - Exposure Risk Screening:: None identified. Vital Signs: 09/27 17:00 BP 157 / 74; Pulse 78; Resp 18 S; Temp 96.8(O); Pulse Ox 100% on R/A; Weight 83.91 kg / gr2 184.99 lbs (R); Height 5 ft. 7 in. (170.18 cm) (R); Pain 4/10; 17:16 BP 141 / 85 (auto/); kc3 17:17 Pulse 63 MON; Pulse Ox 99% ; kc3 17:30 BP 123 / 76 (auto/); kc3 17:31 Pulse 60 MON; Pulse Ox 99% ; kc3 18:00 BP 125 / 78 (auto/); kc3 18:01 Pulse 65 MON; Pulse Ox 98% ; kc3 18:30 BP 123 / 76 (auto/); kas2 18:30 Pulse 64 MON; Pulse Ox 98% ; kas2 19:00 BP 129 / 75 (auto/); kas2 19:00 Pulse 63 MON; Pulse Ox 97% ; kas2 19:19 BP 139 / 80 (auto/); kas2 19:21 Pulse 59 MON; Pulse Ox 98% ; kas2 19:30 BP 127 / 75 (auto/); kas2 19:30 Pulse 59 MON; Pulse Ox 98% ; kas2 19:45 BP 126 / 74 (auto/); kas2 19:45 Pulse 60 MON; Pulse Ox 98% ; kas2 20:00 BP 127 / 77 (auto/); kas2 20:00 Pulse 67 MON; Pulse Ox 98% ; kas2 20:10 Resp 18; Temp 98.0(O); kas2 20:15 BP 124 / 76 (auto/); kas2 20:15 Pulse 61 MON; Pulse Ox 98% ; kas2 20:30 BP 121 / 73 (auto/); kas2 20:30 Pulse 66 MON; Pulse Ox 96% ; kas2 20:45 BP 122 / 72 (auto/); kas2 20:45 Pulse 65 MON; Pulse Ox 98% ; kas2 21:00 BP 122 / 72 (auto/); kas2 21:00 Pulse 66 MON; Pulse Ox 97% ; kas2 21:15 BP 115 / 69 (auto/); kas2 21:15 Pulse 67 MON; Pulse Ox 97% ; kas2 21:30 BP 119 / 71 (auto/); kas2 21:30 Pulse 68 MON; Pulse Ox 98% ; kas2 21:45 BP 124 / 75 (auto/); kas2 21:45 Pulse 65 MON; Pulse Ox 98% ; kas2 22:00 BP 130 / 77 (auto/); kas2 22:00 Pulse 66 MON; Pulse Ox 97% ; kas2 22:15 BP 129 / 79 (auto/); kas2 22:15 Pulse 63 MON; Pulse Ox 99% ; kas2 22:30 BP 129 / 78 (auto/); kas2 22:30 Pulse 68 MON; Pulse Ox 98% ; kas2 23:00 BP 128 / 77 (auto/); kas2 23:00 Pulse 64 MON; Pulse Ox 98% ; kas2 23:15 BP 130 / 82 (auto/); kas2 23:15 Pulse 65 MON; Pulse Ox 98% ; kas2 23:30 BP 133 / 79 (auto/); kas2 23:30 Pulse 62 MON; Pulse Ox 98% ; kas2 23:45 BP 133 / 80 (auto/); kas2 23:45 Pulse 63 MON; Pulse Ox 98% ; kas2 09/28 00:09 BP 135 / 77 (auto/); kas2 00:09 Pulse 65 MON; Pulse Ox 98% ; kas2 00:15 BP 132 / 78 (auto/); sls1 00:16 Pulse 64 MON; Pulse Ox 97% ; sls1 00:30 BP 133 / 78 (auto/); sls1 00:31 Pulse 66 MON; Pulse Ox 97% ; sls1 00:45 BP 137 / 80 (auto/); sls1 00:47 Pulse 69 MON; Resp 22; Pulse Ox 97% on R/A; Pain 0/10; [facility] 09/27 17:00 Body Mass Index 28.97 (83.91 kg, 170.18 cm) gr2 MDM: 09/27 17:06 ECG WITH READING ER PHYS+CARDIAG ordered. EDMS 17:56 Aspirin 324 mg PO once ordered. cs11 17:56 diphenhydrAMINE 25 mg PO once ordered. cs11 17:56 IV Saline Lock ordered. cs11 17:57 Chest, 1 View Ordered. EDMS 17:57 CBC Ordered. EDMS 17:57 MED Profile Ordered. EDMS 17:57 Pt & Aptt Ordered. EDMS 17:57 Cardiac Marker Panel Ordered. EDMS 18:59 CBC Reviewed. cs11 18:59 MED Profile Reviewed. cs11 18:59 Pt & Aptt Reviewed. cs11 18:59 Cardiac Marker Panel Reviewed. cs11 18:59 NS 0.9% 1000 ml IV at bolus once ordered. cs11 19:01 CT Chest Angio R/O PE Ordered. EDMS 20:49 Financial registration complete. zo 21:11 [facility] [place] Agreement was scanned into [employer] and attached to record. zo 22:33 Misc Machine Trimmer Order ordered. cs11 22:46 [facility] Order complete. tmm1 22:46 ECG WITH READING ER PHYS ordered. EDMS 22:47 CARDIAC MARKER PANEL Ordered. EDMS 22:57 Chest, 1 View Reviewed. cs11 22:57 CT Chest Angio R/O PE Reviewed. cs11 09/28 00:45 CARDIAC MARKER PANEL Reviewed. mm11 03:28 T-Sheet-- Draft Copy was scanned into [employer] and attached to record. hs2 11:58 ECG/EKG was scanned into [employer] and attached to record. gb Administered Medications: 09/27 18:18 Drug: Aspirin 324 mg [aspirin 81 mg chewable tablet (4 tabs)] Route: PO; kc3 18:18 Drug: diphenhydrAMINE 25 mg [diphenhydramine 25 mg capsule (1 caps)] Route: PO; kc3 19:06 Drug: NS 0.9% 1000 ml [sodium chloride 0.9 % intravenous solution] Route: IV; Rate: kas2 bolus; Site: right antecubital; Signatures: Dispatcher [employer] EDMS Slime Schumacher, Reg Reg gb Mily Galloway Matthew, DO DO mm11 Tri Dotson RN RN sls1 Cody Otoole, DO DO cs11 McLear, Karla, TIMBER FELLER TIMBER FELLER tmm1 Kylah RodriguezRN RN eaAmrita Castillo, Reg Reg hs2 Ema Pat RN kc3 Shayla Honeycutt RN kas2 The chart was reviewed and I authenticate all verbal orders and agree with the evaluation and treatment provided.Attachments: 21:11 [facility] [place] Payment Agreement zo 09/28 03:28 T-Sheet-- Draft Copy hs2 11:58 ECG/EKG gb Chart Complete MTDD
== END 2016-09-28 01:10 | disposition home or self-care (01) ==
LOC: M ED 16:57
DX: R07.89 Other chest pain (principal); Z90.89 Acquired absence of other organs; Z87.891 Personal history of nicotine dependence; Z88.6 Allergy status to analgesic agent
CPT/HCPCS: 36415; 71010; 71275; 80048; 82550; 82553; 85027; 85610; 85730; 93005; 99285; Q9967

== ENCOUNTER → 2017-01-03 | Outpatient (REF) | payer OTHER ==
[2017-01-03 12:31] LABS: FREE T4 0.77 NG/DL (0.76-1.46)
== END ==
LOC: M SFHCPLAZ 10:28
PROVIDERS: ATTEND Family Medicine
DX: R45.0 Nervousness (principal)

== ENCOUNTER → 2017-04-07 | Outpatient (CLI) | payer OTHER ==
--- NOTE | 2017-04-07 12:28 | REP ---
RIGHT HIP, TWO VIEWS: HISTORY: Osteoarthritis. There is no acute fracture or dislocation. The joint space is normal in appearance. IMPRESSION: There is no acute fracture or dislocation. Signed by Dereje Mack MD 04/07/2017 12:39 P
== END ==
LOC: M RAD 11:58
PROVIDERS: ATTEND Family Medicine
DX: M16.11 Unilateral primary osteoarthritis, right hip (principal)

== ENCOUNTER → 2018-02-01 | Outpatient (CLI) | payer OTHER ==
[2018-02-01 19:38] LABS: BASO % 0.7 % (0.0-1.0); EOS # 0.2 10^3/uL (0.0-0.50); EOS % 3.8 % (0.0-3.0); HEMATOCRIT 42.4 % (42.0-52.0); HEMOGLOBIN 14.6 g/dl (13.5-17.5); IMMATURE GRANULOCYTE % 0.4 % (0-3.0); LYMPH # 2.6 10^3/uL (1.5-4.5); LYMPH % 47.8 % (24.0-44.0); MEAN CORPUSCULAR HGB CONC 34.4 g/dl (32.0-36.5); MONO # 0.5 10^3/uL (0.0-0.8); MONO % 8.3 % (0.0-5.0); NEUTROPHILS # 2.2 10^3/uL (1.8-7.7); PLATELET COUNT, AUTOMATED 318 10^3/uL (150-450); RED BLOOD COUNT 4.56 10^6/uL (4.30-6.10); WHITE BLOOD COUNT 5.5 10^3/uL (4.0-10.0)
[2018-02-01 19:57] LABS: ALKALINE PHOSPHATASE 92 U/L (45-117); ALT/SGPT 51 U/L (12-78); ANION GAP 4 MEQ/L (8-16); AST/SGOT 32 U/L (7-37); BLOOD UREA NITROGEN 11 MG/DL (7-18); CARBON DIOXIDE LEVEL 31 MEQ/L (21-32); CHLORIDE LEVEL 104 MEQ/L (98-107); CREATININE FOR GFR 0.97 MG/DL (0.70-1.30); GLOMERULAR FILTRATION RATE > 60.0 (>60); GLUCOSE, FASTING 80 MG/DL (70-100); SODIUM LEVEL 139 MEQ/L (136-145)
[2018-02-01 19:58] LABS: ALBUMIN 4.2 GM/DL (3.2-5.2); ALBUMIN/GLOBULIN RATIO 1.17 (1.00-1.93); BILIRUBIN,TOTAL 0.4 MG/DL (0.2-1.0); TOTAL PROTEIN 7.8 GM/DL (6.4-8.2)
== END ==
LOC: M WUC 17:08
DX: R53.83 Other fatigue (principal)
CPT/HCPCS: 84443

== ENCOUNTER 2018-11-05 11:10 | Emergency (ER) | payer OTHER ==
[~2018-11-05] VITALS: Ht 170.2 cm; Wt 88.6 kg
[2018-11-05] MEDS ORDERED: MOTR200T44 PO (11:15)
[2018-11-05] MEDS ORDERED: ACETAMINOPHEN TAB 650MG DOSE (2X325MG) PO ONE (12:15)
[2018-11-05] MEDS ORDERED: traMADol 50 MG TAB PO ONE (12:15)
[2018-11-05] MEDS ORDERED: MORPHINE 10 MG/ML 1ML VIAL (J2270) IM ONE (13:30)
--- NOTE | 2018-11-05 14:01 | REP ---
RIGHT SHOULDER, COMPLETE: 11/05/2018. CLINICAL HISTORY: Right shoulder pain. COMPARISON: MRI right shoulder, 03/05/2004. FINDINGS: AC joint shows spurring inferiorly and some narrowing, progressive compared to the 2004 study. No fracture of the clavicle, scapula, ribs, or humerus on this exam. Humerus shows no subluxation or dislocation and no abnormal soft tissue calcifications. IMPRESSION: 1. Some AC joint arthritis, progressive since a 2004 MRI but without fracture, avulsion, AC joint separation, subluxation, dislocation of the humerus, nor abnormal soft-tissue calcifications. Electronically Signed by Charlie Cruz MD 11/05/2018 07:08 P
[2018-11-05] MEDS ORDERED: NORCOTAB PO (14:40)
[2018-11-05 14:46] VITALS: BP 123/70
--- NOTE | 2018-11-06 07:59 | REP ---
RIGHT UPPER EXTREMITY DOPPLER VENOUS ULTRASOUND: 11/05/2018. Clinical history: Right arm pain. Evaluate for DVT. Findings: Standard duplex techniques were utilized. Deep venous system shows the jugular and subclavian veins fully patent with color flow throughout. Respiratory variation and augmented flow noted. The axillary and paired brachial veins show compressibility, color flow, respiratory variation and augmented flow. The cephalic and basilic veins of the superficial system show flow throughout. There is no evidence of superficial thrombophlebitis there. Impression: 1. No ultrasound evidence of deep vein thrombosis or superficial thrombophlebitis in the right upper extremity. Electronically Signed by Charlie Cruz MD 11/06/2018 09:26 A
== END 2018-11-05 14:53 | disposition home or self-care (01) ==
LOC: M ED 11:10
DX: S46.001A Unspecified injury of muscle(s) and tendon(s) of the rotator cuff of right shoulder, initial encounter (principal); M19.011 Primary osteoarthritis, right shoulder; X58.XXXA Exposure to other specified factors, initial encounter; Y92.89 Other specified places as the place of occurrence of the external cause; Y93.9 Activity, unspecified; Y99.0 Civilian activity done for income or pay; Z88.6 Allergy status to analgesic agent
CPT/HCPCS: 73030; 93971; 96372; 99284; J2270

== ENCOUNTER → 2018-11-06 | Outpatient (REF) | payer OTHER ==
[~2018-11-06] MED LIST: MOTR200T44 PO; NORCOTAB PO
[2018-11-06 17:44] LABS: HEMATOCRIT 41.9 % (42.0-52.0); HEMOGLOBIN 14.3 g/dl (13.5-17.5); RED BLOOD COUNT 4.41 10^6/uL (4.30-6.10); WHITE BLOOD COUNT 7.1 10^3/uL (4.0-10.0)
[2018-11-06 17:45] LABS: BASO % 0.4 % (0.0-1.0); EOS # 0.2 10^3/uL (0.0-0.50); EOS % 2.1 % (0.0-3.0); LYMPH # 2.4 10^3/uL (1.5-4.5); LYMPH % 33.6 % (24.0-44.0); MEAN CORPUSCULAR HEMOGLOBIN 32.4 pg (27.0-33.0); MEAN CORPUSCULAR HGB CONC 34.1 g/dl (32.0-36.5); MONO # 0.8 10^3/uL (0.0-0.8); MONO % 10.8 % (0.0-5.0); NEUTROPHILS # 3.7 10^3/uL (1.8-7.7); NEUTROPHILS % 52.8 % (36.0-66.0); PLATELET COUNT, AUTOMATED 296 10^3/uL (150-450)
[2018-11-06 18:03] LABS: URIC ACID 3.3 MG/DL (3.5-7.2)
[2018-11-06 18:18] LABS: ERYTHROCYTE SEDIMENTATION RATE 41 mm/hr (0-15)
== END ==
LOC: M SFHCPLAZ 15:47
PROVIDERS: ATTEND Family Medicine
DX: M75.51 Bursitis of right shoulder (principal)

== ENCOUNTER → 2018-11-07 | Outpatient (CLI) | payer OTHER ==
[~2018-11-07] MED LIST changes: +PROHANCE 279.3MG/ML 15ML VIAL (A9576) As Ordered ONE; +PROHANCE 279.3MG/ML 5ML VIAL (A9576) As Ordered ONE
--- NOTE | 2018-11-08 08:17 | REP ---
MRI SHOULDER WITHOUT AND WITH IV CONTRAST: 11/07/2018. Clinical history: Shoulder pain, limited range of motion. Subdeltoid bursitis. Comparison: X-ray 11/05/2018. Technique: Coronal T1 and T2, axial fat suppressed T1 and T2 with 3-D Johns gradient echo, sagittal fat suppressed T2-weighted sequences and following infusion of 17 ml ProHance, axial and coronal T1 fat suppressed images provided. Findings: The AC joint shows hypertrophic spurring from the clavicle more than acromion but indenting musculotendinous junction of the rotator cuff. There is also a peripheral acromial spur. This contributes to some bursal surface fraying of the supraspinatus. There is a partial-thickness tear at the insertional footprint of the supraspinatus on the greater tuberosity humeral head anteriorly. Tendinosis and tendinopathy is seen with some linear intrasubstance signal more central portions of the supraspinatus from its insertional footprint suggesting a linear intrasubstance tear but there is no full-thickness tear, retraction of the tendon nor atrophy of the muscle belly. Trace subacromial and subdeltoid bursal fluid. This is not an effusion. There is no glenohumeral joint effusion. The subscapularis shows tendinopathy tendinosis along its insertion at the lesser tuberosity. There is likewise no full-thickness tear or atrophy of the muscles. Biceps tendon is seated in its groove. The intra-articular portion is intact. The biceps labral junction grossly intact. The coracoclavicular and coracohumeral ligaments were grossly intact. There is a trace amount of fluid in the subcoracoid bursa. There is hyperintense signal along the bursa over the anterior aspect of the joint from lateral to the bicipital groove all the way to the subcoracoid bursa. There is no glenohumeral joint effusion or definite labral tear. Infraspinatus and teres minor tendons and muscles are intact. After IV contrast administration, there is enhancement of the bursa over the subacromial and subdeltoid regions as well as anterior aspect of the joint although more posterior aspects were without abnormal enhancement. No biceps tendonitis or peritendinitis. Coracoclavicular and coracohumeral ligaments are intact. No abnormal bony enhancement. There is a small amount of hyperdense T2 signal greater tuberosity humeral head anteriorly that may be due to peripheral acromial spur with impingement. Impression: 1. There is evidence of some increased bursal enhancement of the subacromial subdeltoid bursa and anterior to the shoulder from the anterior margin of the greater tuberosity medially towards the subcoracoid bursa. I do not see a significant joint effusion and only trace subacromial/subdeltoid bursal fluid. Posterior superior margins of the bursa are without abnormal enhancement. These are changes to suggest bursitis. Only minimal fluid. 2. Tendinopathy tendinosis of the subscapularis and supraspinatus anterior to central fibers with a partial tear at the anterior insertional footprint of the supraspinatus over the greater tuberosity humeral head. 3. Coracoclavicular and coracohumeral ligaments, biceps tendon and biceps labral complex labrum, the infraspinatus and teres minor all grossly intact. Electronically Signed by Charlie Cruz MD 11/08/2018 09:11 P
== END ==
LOC: M RAD 16:26
PROVIDERS: ATTEND Family Medicine
DX: M75.51 Bursitis of right shoulder (principal); M65.811 Other synovitis and tenosynovitis, right shoulder
CPT/HCPCS: 73223; A9576

== ENCOUNTER → 2022-05-13 | Outpatient (REF) | payer OTHER ==
[~2022-05-13] MED LIST changes: +HYDR-3715 PO; -NORCOTAB PO; -PROHANCE 279.3MG/ML 15ML VIAL (A9576) As Ordered ONE; -PROHANCE 279.3MG/ML 5ML VIAL (A9576) As Ordered ONE
[2022-05-13 12:33] LABS: BLOOD UREA NITROGEN 14 MG/DL (7-18); CALCIUM LEVEL 9.3 MG/DL (8.5-10.1); CARBON DIOXIDE LEVEL 27 MEQ/L (21-32); CHLORIDE LEVEL 102 MEQ/L (98-107); CHOLESTEROL LEVEL 185 MG/DL (<200); CHOLESTEROL RISK RATIO 3.425 (<5); CREATININE FOR GFR 1.07 MG/DL (0.70-1.30); GLOMERULAR FILTRATION RATE > 60.0 (>56); GLUCOSE, FASTING 128 MG/DL (70-100); HDL CHOLESTEROL 54 MG/DL (>40); LDL CHOLESTEROL 99 MG/DL (<100); NON-HDL-C 131 MG/DL; POTASSIUM SERUM 3.9 MEQ/L (3.5-5.1); SODIUM LEVEL 136 MEQ/L (136-145); TRIGLYCERIDES LEVEL 158 MG/DL (<150)
[2022-05-13 13:14] LABS: HEMOGLOBIN A1c 5.3 %
== END ==
LOC: M WUC 09:51
PROVIDERS: ATTEND Family Medicine
DX: Z00.00 Encounter for general adult medical examination without abnormal findings (principal); Z13.220 Encounter for screening for lipoid disorders; E66.9 Obesity, unspecified

== ENCOUNTER 2024-03-21 08:04 | Day surgery (SDC) | payer OTHER ==
[~2024-03-21] VITALS: Ht 170.2 cm; Wt 79.1 kg
[~2024-03-21 08:04] MED LIST changes: +ALLE180T33 PO; +FIBE625T PO; +KETAMINE HCL 200MG/20ML VIAL As Ordered ONE; +KETOROLAC 60MG 2ML VIAL As Ordered ONE; +LIDOCAINE 2% 100MG/5ML SDV (FOR ANES.) As Ordered ONE; +propofoL 200 MG/20 ML VIAL As Ordered ONE
[2024-03-21 10:45] VITALS: BP 158/76; TEMP 97.5; O2SAT 98
== END 2024-03-21 10:45 | disposition home or self-care (01) ==
LOC: M SDC 08:04
PROVIDERS: ATTEND Orthopaedic Surgery Hand Surgery
DX: G56.02 Carpal tunnel syndrome, left upper limb (principal); Z88.6 Allergy status to analgesic agent; Z87.891 Personal history of nicotine dependence; Z79.899 Other long term (current) drug therapy
CPT/HCPCS: 29848; J0665; J1885

== ENCOUNTER 2024-04-19 07:44 | Day surgery (SDC) | payer OTHER ==
[~2024-04-19] VITALS: Ht 167.6 cm; Wt 77.9 kg
[~2024-04-19 07:44] MED LIST changes: +ACET650T61 PO; +IBUP200C90 PO; -KETAMINE HCL 200MG/20ML VIAL As Ordered ONE; -KETOROLAC 60MG 2ML VIAL As Ordered ONE; +NS 1,000 ML IV ONE
[2024-04-19 09:18] VITALS: TEMP 97.8
[2024-04-19 09:41] VITALS: BP 128/67; O2SAT 96
== END 2024-04-19 09:46 | disposition home or self-care (01) ==
LOC: M OPP 07:44
PROVIDERS: ATTEND Internal Medicine Gastroenterology
DX: Z12.11 Encounter for screening for malignant neoplasm of colon (principal); K64.8 Other hemorrhoids; Z79.1 Long term (current) use of non-steroidal anti-inflammatories (NSAID); Z88.6 Allergy status to analgesic agent

== ENCOUNTER → 2025-03-21 | Outpatient (REF) | payer OTHER ==
[~2025-03-21] MED LIST changes: -LIDOCAINE 2% 100MG/5ML SDV (FOR ANES.) As Ordered ONE; -NS 1,000 ML IV ONE; -propofoL 200 MG/20 ML VIAL As Ordered ONE
[2025-03-27 19:45] LABS: LYME TOTAL ANTIBODY CIA <= 0.90 Index (<=0.90)
== END ==
LOC: M LABWUC 13:53
PROVIDERS: ATTEND Student in an Organized Health Care Education/Training Program
DX: M25.519 Pain in unspecified shoulder (principal)

== ENCOUNTER → 2025-03-28 | Outpatient (CLI) | payer OTHER | LOC: M WUC 10:32 | PROVIDERS: ATTEND Student in an Organized Health Care Education/Training Program | DX: R05.9 Cough, unspecified (principal) ==

== ENCOUNTER → 2025-04-03 | Outpatient (REF) | payer OTHER | LOC: M SFHCLERA 11:23 | PROVIDERS: ATTEND Family Medicine | DX: R76.8 Other specified abnormal immunological findings in serum (principal) ==

== ENCOUNTER → 2025-05-15 | Outpatient (REF) | payer OTHER ==
[2025-05-15 19:55] LABS: ALT/SGPT 41 U/L (7.0-40); AST/SGOT 28 U/L (<34); CALCIUM LEVEL 9.6 MG/DL (8.5-10.1); CARBON DIOXIDE LEVEL 30 MMOL/L (20-31); CHLORIDE LEVEL 106 MMOL/L (98-107); CHOLESTEROL LEVEL 214 MG/DL (<200); CHOLESTEROL RISK RATIO 3.94 (<5); CREATININE FOR GFR 0.98 MG/DL (0.70-1.30); GLOMERULAR FILTRATION RATE > 90.0 (>56); LDL CHOLESTEROL 139.7 MG/DL (<100); NON-HDL-C 159.7 MG/DL; POTASSIUM SERUM 4.5 MMOL/L (3.5-5.1); SODIUM LEVEL 145 MMOL/L (136-145); TRIGLYCERIDES LEVEL 100 MG/DL (<150)
[2025-05-15 20:10] LABS: BASO # 0.0 10^3/uL (0.0-0.2); BASO % 0.8 % (0.0-1.0); EOS # 0.2 10^3/uL (0.0-0.5); EOS % 4.2 % (0.0-3.0); LYMPH # 1.8 10^3/uL (1.5-5.0); LYMPH % 46.4 % (24.0-44.0); MONO # 0.3 10^3/uL (0.0-0.8); MONO % 8.4 % (2.0-8.0); NEUTROPHILS # 1.5 10^3/uL (1.5-8.5); NEUTROPHILS % 40.2 % (36.0-66.0); PLATELET COUNT, AUTOMATED 232 10^3/uL (150-450)
[2025-05-15 20:32] LABS: ESTIMATED AVERAGE GLUCOSE 103.0 MG/DL (60-110)
== END ==
LOC: M SFHCLERA 07:42
PROVIDERS: ATTEND Family Medicine
DX: Z00.00 Encounter for general adult medical examination without abnormal findings (principal)